=== PATIENT | female | born 1985 | race Asian ===

== ENCOUNTER 2023-12-23 19:45 | Emergency (ER) | payer OTHER ==
[~2023-12-23] VITALS: Ht 160 cm; Wt 57.0 kg
[2023-12-23 19:59] VITALS: O2SAT 100
[2023-12-23] MEDS ORDERED: IBUP-2029 MT (21:01)
[2023-12-23] MEDS ORDERED: HYDR-4001 MT (21:01)
[2023-12-23] MEDS: HYDROCODONE/ACETAMINOPHEN 5/325MG TABLET PO ONE (21:14)
[2023-12-23 21:15] VITALS: BP 127/72; PULSE 64; RESP 16; TEMP 37.05852; O2SAT 99
== END 2023-12-23 21:17 | disposition home or self-care (01) ==
LOC: ER 19:45
DX: R68.84 Jaw pain (principal)
CPT/HCPCS: 99283

== ENCOUNTER 2024-12-05 12:45 | Inpatient (IN) | payer OTHER ==
[~2024-12-05] VITALS: Ht 160 cm; Wt 73.0 kg
[~2024-12-05 12:45] MED LIST: HYDR-4001 MT; IBUP-1455 MT
[2024-12-05 12:55] VITALS: O2SAT 98
[2024-12-05 14:06] LABS: CLARITY URINE CLEAR (CLEAR); COLOR URINE YELLOW (YELLOW); GLUCOSE URINE NEGATIVE (NEGATIVE); KETONES URINE NEGATIVE (NEGATIVE); LEUKOCYTE ESTERASE URINE 2+ (NEGATIVE); NITRITE URINE NEGATIVE (NEGATIVE); OCCULT BLOOD URINE 3+ (NEGATIVE); PH URINE 6.0 (4.5-8.0); PROTEIN URINE TRACE (NEGATIVE); SPECIFIC GRAVITY URINE 1.020 (1.005-1.030); UROBILINOGEN URINE 0.2 E.U./dL (0.2-1.0)
[2024-12-05 14:27] LABS: BACTERIA URINE 2+; SQUAMOUS EPITHELIAL CELL URINE 2+ /lpf (RARE/1+); WBC URINE 25-50 /hpf (0-2); YEAST URINE NONE SEEN
[2024-12-05] MEDS: CEFTRIAXONE 1GM/50ML 50 ML IV ONE (17:48)
[2024-12-05] MEDS: SODIUM CHLORIDE 0.9% (SEPSIS BOLUS) IV ONE (17:48)
[2024-12-05 17:54] LABS: BASOPHILS % 0.3 % (0.0-2.0); EOSINOPHILS % 0.7 % (0.0-5.0); HEMATOCRIT. 40.8 % (36.0-48.0); HEMOGLOBIN. 13.7 g/dL (12.0-16.0); LYMPHOCYTES % 10.7 % (20.0-50.0); MEAN PLATELET VOLUME 7.4 fl (7.4-10.4); MONOCYTES % 5.9 % (2.0-8.0); NEUTROPHILS % 82.4 % (40.0-76.0); PLATELET 224 x1000/uL (130-400); RED BLOOD CELL COUNT 4.61 mill/uL (4.2-5.4); RED CELL DISTRIBUTION WIDTH 12.8 % (11.6-14.6)
[2024-12-05 18:04] LABS: INR 0.9
[2024-12-05 18:11] LABS: CREATININE 0.8 mg/dL (0.6-1.0); UREA NITROGEN BLOOD 11 mg/dL (9-23)
[2024-12-05 18:13] LABS: ASPARTATE AMINOTRANSFERASE 23 IU/L (<34); BILIRUBIN DIRECT 0.2 mg/dL (<=3.0); BILIRUBIN TOTAL 0.6 mg/dL (0.1-1.0); PROTEIN TOTAL 7.6 g/dL (6.0-8.3)
[2024-12-05] MEDS: CEFTRIAXONE 1GM/50ML 50 ML IV NR (19:11)
[2024-12-05] MEDS ORDERED: SULF1TAB48 MT (19:26)
[2024-12-05] MEDS: ACETAMINOPHEN 325MG TABLET PO ONE (19:58)
[2024-12-05 20:00] VITALS: BP 122/73; PULSE 102; RESP 18; TEMP 36.7; O2SAT 97
[2024-12-05] MEDS ORDERED: MAGNESIUM/ALUMINUM HYDROXIDE/SIMETHICONE 30ML UDC PO PRN (21:30)
[2024-12-05] MEDS ORDERED: DOCUSATE SODIUM 100MG CAPSULE PO PRN (21:30)
[2024-12-05] MEDS ORDERED: ZOLPIDEM TARTRATE 5MG TABLET PO PRN (21:30)
[2024-12-05 22:00] VITALS: BP 122/73; PULSE 102; RESP 20; TEMP 36.696
[2024-12-05] MEDS: PIPERACILLIN/TAZO 3.375G/50ML 50 ML IV SCH (22:35)
[2024-12-06] VITALS: BP 121/77; PULSE 99; RESP 18; TEMP 36.6; O2SAT 98
[2024-12-06 04:00] VITALS: BP 134/71; PULSE 99; RESP 18; TEMP 36.9; O2SAT 95
[2024-12-06] MEDS: ACETAMINOPHEN 325MG TABLET PO PRN (05:19)
[2024-12-06 08:00] VITALS: BP 122/76; PULSE 89; RESP 18; TEMP 36.8; O2SAT 97
[2024-12-06] MEDS: ENOXAPARIN 40MG/0.4ML SYR SUBCUT SCH (09:00)
[2024-12-06 11:37] LABS: BASOPHILS % 0.4 % (0.0-2.0); EOSINOPHILS % 0.7 % (0.0-5.0); HEMATOCRIT. 36.9 % (36.0-48.0); HEMOGLOBIN. 12.4 g/dL (12.0-16.0); LYMPHOCYTES % 21.7 % (20.0-50.0); MEAN PLATELET VOLUME 7.4 fl (7.4-10.4); MONOCYTES % 9.8 % (2.0-8.0); NEUTROPHILS % 67.4 % (40.0-76.0); PLATELET 184 x1000/uL (130-400); RED BLOOD CELL COUNT 4.15 mill/uL (4.2-5.4); RED CELL DISTRIBUTION WIDTH 12.8 % (11.6-14.6)
[2024-12-06 11:53] LABS: CREATININE 0.7 mg/dL (0.6-1.0)
[2024-12-06 11:54] LABS: UREA NITROGEN BLOOD 8 mg/dL (9-23)
[2024-12-06 12:00] VITALS: BP 113/71; PULSE 84; RESP 16; TEMP 37.1; O2SAT 98
[2024-12-06 16:00] VITALS: BP 115/81; PULSE 88; RESP 18; TEMP 37.3; O2SAT 97
[2024-12-06 20:00] VITALS: BP 111/76; PULSE 82; RESP 16; TEMP 36.6; O2SAT 99
[2024-12-07] VITALS: BP 122/74; PULSE 83; RESP 17; TEMP 36.3; O2SAT 99
[2024-12-07 04:00] VITALS: BP 107/56; PULSE 78; RESP 16; TEMP 36.5; O2SAT 99
[2024-12-07 07:29] LABS: HCG SCREEN NEGATIVE
[2024-12-07] MEDS: POTASSIUM CHLORIDE 20MEQ TABLET SR PO SCH (09:51)
[2024-12-07 11:06] VITALS: BP 127/71; PULSE 80; RESP 18; TEMP 36.6; O2SAT 100
[2024-12-07 13:13] VITALS: BP 119/82; PULSE 87; RESP 19; TEMP 97.7
== END 2024-12-07 13:42 | disposition home or self-care (01) | DRG 690 ==
LOC: ER 12:45 → 8EST 20:46 → ENRESERV 21:36
PROVIDERS: ADMIT Internal Medicine Pulmonary Disease; ATTEND Internal Medicine Pulmonary Disease
DX: N39.0 Urinary tract infection, site not specified (principal); N83.292 Other ovarian cyst, left side
CPT/HCPCS: 36415; 74177; 76830; 76856; 80048; 80076; 81003; 83605; 84145; 84703; 85025; 99285; J0696; J1650; J2543; J7030